=== PATIENT | male | born 1950 | race Caucasian/White ===

== ENCOUNTER 2017-11-11 09:22 | Day surgery (SDC) | payer OTHER ==
[2017-11-07 14:31] VITALS: BMI 25.8
[2017-11-11 09:48] VITALS: TEMP 97.7
[2017-11-11] MEDS ORDERED: MIDAZOLAM HCL 2 MG/2 ML SINGLE DOSE VIAL ONE ×2 (12:56)
--- NOTE | 2017-11-11 13:37 | OP ---
Operative Note - Note: Operative Date: 11/11/17 Pre-Operative Diagnosis: Left kidney stone Operation: Left ESWL Findings: 10 mm Left low pole renal stone Post-Operative Diagnosis: Same as Pre-op Surgeon: Tyron Baker Anesthesia: Fractional Estimated Blood Loss (mls): 0
[2017-11-11 15:48] VITALS: BP 131/53; PULSE 54
--- NOTE | 2017-11-11 21:53 | OP ---
DATE OF OPERATION: 11/11/2017 PREOPERATIVE DIAGNOSIS: Left renal stone. POSTOPERATIVE DIAGNOSIS: Left renal stone. PROCEDURE: Left extracorporeal shock wave lithotripsy. ATTENDING: Angelo Juarez MD ANESTHESIA: Fractional. DESCRIPTION OF OPERATION: The patient was brought in the operating room and placed in supine position on the operating room table. Ultrasonography and fluoroscopy were performed. A 10-mm left lower pole stone was identified. Anesthesia and preoperative antibiotics were then administered. Shock wave lithotripsy was then performed; 2500 impulses at 17 joules of power were administered to the stone with excellent fragmentation of the stone under real-time ultrasonography and fluoroscopy. The patient tolerated the procedure very well. No complications were noted. The disposition of the patient was to the recovery room. ANGELO JUAREZ M.D. [id number]
== END 2017-11-11 15:00 | disposition home or self-care (01) ==
LOC: JASU-SURG 09:22
PROVIDERS: ATTEND Urology
PROC: 0TF4XZZ Fragmentation in Left Kidney Pelvis, External Approach (ICD-10-PCS; principal; 2017-11-11 11:45)
DX: N20.0 Calculus of kidney (principal)

== ENCOUNTER 2019-10-26 04:20 | Day surgery (SDC) | payer OTHER ==
[2019-10-22 19:41] VITALS: BMI 25.4
[2019-10-26] MEDS ORDERED: DEXAMETHASONE SOD PHOSPHATE 4 MG/1 ML VIAL ONE (09:44)
[2019-10-26] MEDS ORDERED: LIDOCAINE HCL/PF 2% SDV 5ML VIAL ONE (09:44)
[2019-10-26] MEDS ORDERED: MIDAZOLAM HCL 2 MG/2 ML SINGLE DOSE VIAL ONE ×2 (09:45→10:27)
[2019-10-26] MEDS ORDERED: PROPOFOL 20 ML ONE ×2 (09:45→10:27)
[2019-10-26] MEDS ORDERED: ePHEDrine SULFATE 50 MG/1 ML AMPULE ONE (11:00)
--- NOTE | 2019-10-26 11:13 | OP ---
Operative Note - Note: Operative Date: 10/26/19 Pre-Operative Diagnosis: Left renal stone Operation: Left ESWL Findings: 6 mm upper pole Left renal stone Post-Operative Diagnosis: Same as Pre-op Anesthesia: Regional Estimated Blood Loss (mls): 0 Operative Report Dictated: Yes
[2019-10-26 12:40] VITALS: BP 118/60; PULSE 52; TEMP 98
--- NOTE | 2019-10-26 16:29 | OP ---
DATE OF OPERATION: 10/26/2019 PREOPERATIVE DIAGNOSIS: Left renal stone. POSTOPERATIVE DIAGNOSIS: Left renal stone. PROCEDURE: Left extracorporeal shockwave lithotripsy. ATTENDING: Angelo Baker M.D. ANESTHESIA: Fractional. DESCRIPTION OF PROCEDURE: Patient was brought in the operating room, placed in a supine position on the operating room table. Ultrasonography and fluoroscopy were performed. A 6-mm left upper pole stone was identified. Anesthesia and preoperative antibiotics were then administered to the patient. Shockwave lithotripsy was then started. 2500 impulses at 17 joules of power were administered to the stone with excellent fragmentation of this stone was noted under realtime ultrasonography and fluoroscopy. The patient tolerated the procedure very well. DISPOSITION: Patient to recovery room. ANGELO JUAREZ M.D. [id number]
== END 2019-10-26 12:30 | disposition home or self-care (01) ==
LOC: JASU-SURG 04:20
PROVIDERS: ATTEND Urology
PROC: 0TF4XZZ Fragmentation in Left Kidney Pelvis, External Approach (ICD-10-PCS; principal; 2019-10-26 09:30)
DX: N20.0 Calculus of kidney (principal)

== ENCOUNTER 2021-01-16 04:44 | Day surgery (SDC) | payer OTHER ==
[2021-01-16 09:53] VITALS: BMI 26.7
[2021-01-16] MEDS ORDERED: PROPOFOL 20 ML ONE (12:35)
[2021-01-16] MEDS ORDERED: MIDAZOLAM HCL 2 MG/2 ML SINGLE DOSE VIAL ONE (12:36)
[2021-01-16 15:17] VITALS: BP 122/63; PULSE 50; TEMP 97.4
[2021-01-16] MEDS ORDERED: ONDANSETRON 4 MG/2 ML VIAL IVPUSH PRN (15:21)
[2021-01-16] MEDS ORDERED: oxyCODONE HCL 5 MG TABLET PO PRN (15:21)
[2021-01-16] MEDS ORDERED: ACETAMINOPHEN 500 MG TABLET (FP) PO PRN (15:21)
[2021-01-16] MEDS ORDERED: LACTATED RINGERS SOLUTION 1,000 ML IV SCH (15:30)
== END 2021-01-16 14:30 | disposition home or self-care (01) ==
LOC: JASU-SURG 04:44
PROVIDERS: ATTEND Urology
PROC: 0TF3XZZ Fragmentation in Right Kidney Pelvis, External Approach (ICD-10-PCS; principal; 2021-01-16 12:00)
DX: N20.0 Calculus of kidney (principal)

== ENCOUNTER 2022-11-12 04:57 | Day surgery (SDC) | payer MEDICARE ==
[2022-11-09 15:04] VITALS: BMI 26.1
[2022-11-12] MEDS ORDERED: MIDAZOLAM HCL 2 MG/2 ML SINGLE DOSE VIAL ONE (11:23)
[2022-11-12] MEDS ORDERED: PROPOFOL 20 ML ONE (11:23)
[2022-11-12] MEDS ORDERED: DEXAMETHASONE SOD PHOSPHATE 4 MG/1 ML VIAL ONE (11:24)
[2022-11-12] MEDS ORDERED: ONDANSETRON 4 MG/2 ML VIAL ONE (11:24)
[2022-11-12] MEDS ORDERED: ceFAZolin SODIUM 1 GM VIAL ONE ×2 (11:24→18:00)
[2022-11-12] MEDS ORDERED: LIDOCAINE HCL/PF 2% SDV 5ML VIAL ONE (11:24)
[2022-11-12] MEDS ORDERED: SODIUM CHLORIDE 0.9% P/F 10 ML VIAL IJ ONE (11:24)
[2022-11-12] MEDS ORDERED: ceFAZolin SODIUM 1 GM VIAL IVPB ONE (12:33)
[2022-11-12] MEDS ORDERED: GLYCOPYRROLATE 0.2 MG/1 ML VIAL ONE (12:51)
[2022-11-12] MEDS ORDERED: LACTATED RINGERS SOLUTION 1,000 ML IV SCH (13:30)
[2022-11-12] MEDS ORDERED: CEFAZOLIN 1 GM in DEXTROSE 5%-WATER - 50 ML IVPB SCH (15:00)
[2022-11-12] MEDS: CEFAZOLIN 1 GM in DEXTROSE 5%-WATER - 50 ML IVPB SCH (18:06)
[2022-11-13] MEDS: CEFAZOLIN 1 GM in DEXTROSE 5%-WATER - 50 ML IVPB SCH ×2 (00:23→05:43)
[2022-11-13 03:28] VITALS: RESP 18
[2022-11-13] MEDS ORDERED: PANTOPRAZOLE 40 MG TABLET PO SCH (10:00)
[2022-11-13] MEDS ORDERED: LOSARTAN POTASSIUM 50 MG TABLET PO SCH (10:00)
[2022-11-13 10:49] VITALS: BP 114/53; PULSE 71; TEMP 98.5
== END 2022-11-13 11:05 | disposition home or self-care (01) ==
LOC: JASU-SURG 04:57 → JASUSAT 04:57 → J8W 20:40 → JASUSAT 11-13 11:05
PROVIDERS: ATTEND Urology
PROC: 0VT08ZZ Resection of Prostate, Via Natural or Artificial Opening Endoscopic (ICD-10-PCS; principal; 2022-11-12 11:00)
DX: N40.1 Benign prostatic hyperplasia with lower urinary tract symptoms (principal)
CPT/HCPCS: 88305-TC; 94760